=== PATIENT | male | born 1970 | race Caucasian/White ===

== ENCOUNTER 2017-08-28 15:48 | Emergency (ER) | payer MEDICAID ==
[2017-08-28 15:59] VITALS: TEMP 99.1
--- NOTE | 2017-08-28 16:44 | C.PDOC ---
History Of Present Illness 46 yo male c/o right hand pain for two days. Pt notes he slipped on ice and tried to break his fall with his right hand. Notes the swelling has improved but the pain persists. No change in sensation. No other trauma. Right hand dominant. Taking tylenol and motrin without relief. - HPI Time Seen by Provider: 08/28/17 16:11 Chief Complaint (Nursing): Trauma History Per: Patient History/Exam Limitations: no limitations Onset/Duration Of Symptoms: Days Past Medical History Vital Signs: Last Vital Signs Temp 99.1 F 08/28/17 15:58 Pulse 81 08/28/17 17:34 Resp 18 08/28/17 17:34 BP 148/83 08/28/17 17:34 Pulse Ox 98 08/28/17 17:34 Family History: States: Unknown Family Hx - Social History Hx Alcohol Use: No Hx Substance Use: No - Immunization History Hx Tetanus Toxoid Vaccination: No Hx Influenza Vaccination: No Hx Pneumococcal Vaccination: No Review Of Systems Constitutional: Negative for: Fever Neurological: Negative for: Weakness, Numbness Physical Exam - Physical Exam Appears: Well, Non-toxic, No Acute Distress Skin: Warm, Dry Head: Atraumatic, Normacephalic Eye(s): bilateral: Normal Inspection, EOMI Nose: Normal Neck: Normal, Normal ROM, Supple Chest: Symmetrical Respiratory: No Accessory Muscle Use Back: Normal Inspection Extremity: No Normal ROM (decreased ROM secondary to pain), Tenderness ((+) tenderness and swelling to the right hand , torey at 4th and 5th metacarpals), Capillary Refill (< 2 sec), Swelling Pulses: Left Radial: Normal, Right Radial: Normal Neurological/Psych: Oriented x3, Normal Speech, Normal Sensation ED Course And Treatment O2 Sat by Pulse Oximetry: 95 - Other Rad Hand XR X-Ray: Interpreted by Me, Viewed By Me Interpretation: (+) FX at the 5th MCP Progress Note: Ulna Gutter splint applied by certified appliance service technician. Instructed RICE and follow up with ortho in 1-2 days. Disposition - Disposition Referrals: Hi Nieves MD [Staff Provider] - Disposition: HOME/ ROUTINE Disposition Time: 17:19 Condition: STABLE Additional Instructions: Rest, ice and elevate the area. Follow up with hand specialist in 1-2 days. Prescriptions: oxyCODONE/Acetaminophen [Percocet 5/325 mg Tab] 1 tab PO QID PRN #20 tab PRN Reason: Pain Instructions: Hand Fracture (ED) Forms: [facility] (Irish) - Clinical Impression Clinical Impression: Hand fracture
[2017-08-28] MEDS ORDERED: Oxycodone/Acetaminophen 5/325 mg Tab PO STA (17:18)
[2017-08-28] MEDS ORDERED: Oxycodone/Acetaminophen 5/325 mg Tab ONE (17:28)
[2017-08-28 17:36] VITALS: BP 148/83; PULSE 81; RESP 18
--- NOTE | 2017-08-28 17:45 | RAD ---
PROCEDURE: Right Hand Radiographs. HISTORY: trauma COMPARISON: None. FINDINGS: BONES: Comminuted nondisplaced fracture distal 5th metacarpal bone compatible with boxer's fracture. Prominent local soft tissue edema is identified. The fracture appears to be articular in nature with the small finger are intact without fracture. No subluxation or dislocation. A hairline fracture of the distal 4th metatarsal metacarpal bone is not excluded. Further clinical correlation is advised. OTHER FINDINGS: None. IMPRESSION: Comminuted articular fracture of the distal portion right 5th metacarpal bone as discussed above. No dislocation. A hairline fracture of the distal metaphysis/ epiphysis right 4th metacarpal bone is not excluded. Additional details as discussed above.
[2017-08-28 18:22] VITALS: O2SAT 95
== END 2017-08-28 17:36 | disposition home or self-care (01) ==
LOC: C.ER 15:48
DX: S62.306A Unspecified fracture of fifth metacarpal bone, right hand, initial encounter for closed fracture (principal); W00.0XXA Fall on same level due to ice and snow, initial encounter